=== PATIENT | female | born 1935 | race Caucasian/White ===

== ENCOUNTER 2017-02-25 10:42 | Day surgery (SDC) | payer OTHER ==
[2017-02-20 09:05] VITALS: BMI 19.9
[~2017-02-25 10:42] MED LIST: ACETAMINOPHEN 325 MG TABLET (FP) PO PRN
[2017-02-25] MEDS: FLURBIPROFEN 0.03% OPHTH SOLN 2.5 ML BOTTLE ONE ×5 (11:10→11:50)
[2017-02-25] MEDS: TROPICAMIDE 1% OPHTH SOLN 15 ML BOTTLE ONE ×5 (11:10→11:50)
[2017-02-25] MEDS: GENTAMICIN SULFATE 0.3% OPHTHALMIC (EYE DROPS) 5ML BOTTLE ONE ×2 (11:10→11:50)
[2017-02-25] MEDS: PHENYLEPHRINE 2.5% OPHTH SOLN 15 ML BOTTLE ONE ×5 (11:10→11:50)
[2017-02-25] MEDS: CYCLOPENTOLATE HCL 1% OPHTH SOLN 2 ML BOTTLE ONE ×5 (11:10→11:50)
[2017-02-25] MEDS ORDERED: MIDAZOLAM HCL 2 MG/2 ML SINGLE DOSE VIAL ONE (12:21)
[2017-02-25 13:35] VITALS: TEMP 98.4
[2017-02-25 14:12] VITALS: BP 127/77; PULSE 76
--- NOTE | 2017-02-27 10:23 | OP ---
DATE OF OPERATION: 02/25/2017 DATE OF DICTATION: 02/26/2017 TITLE OF THE PROCEDURE: Planned extracapsular cataract extraction, phacoemulsification, insertion of posterior chamber lens implant, and filtering procedure of the right eye. SURGEON: Benton Mckeon MD [employer] SURGEON: Benton Mckeon MD COMPLICATIONS: None. PREOPERATIVE DIAGNOSIS: Cataract, right eye, glaucoma, right eye. POSTOPERATIVE DIAGNOSIS: Cataract, right eye, glaucoma, right eye. ANESTHESIA: Local standby. ANESTHESIOLOGIST: Reagan Medina DO, and Sophai White MD FINDINGS AND PROCEDURES: After successful peribulbar anesthesia was given to the right eye, the patient was prepped and draped in the usual manner. I exposed the right eye, and a lid speculum was inserted as were the Tegaderm strips, and then the microscope was brought in position over the right eye. Superior fornix-based flap was then fashioned for 12 mm using Stew scissors and 0.12 forceps, and hemostasis was achieved with electrocautery. A limbal groove was then fashioned and for 3 mm with the crescent blade and dissected anterior into clear cornea. Then, a 3-mm blade was used to enter the anterior chamber. Then, under Viscoat, a 360-degree anterior capsulotomy was performed and the leaflet removed from the eye. Phacoemulsification of the entire nucleus was then done with bimanual technique without complications, and this was followed by irrigation aspiration of all cortical material with an intact posterior capsule and a red reflex present. Provisc was injected in the posterior chamber to deepen the posterior capsule, and then, the implant was inspected carefully with the microscope and found to be free of defects and free of flaws, and it was placed in the Provisc-filled cartridge, the cartridge placed in the injector, and then the implant injected into the eye such that the inferior haptic was in the inferior capsular bag and the superior haptic was in the superior capsular bag and rotated in the horizontal position with the Sinskey hook. Attention was then focused on the trabeculaer mesh work where a block measuring 1.5 x 3.5 mm was excised using Micro-Sharp blade, Vannas scissors, and 0.12 forceps, and an iridotomy performed at the 1 o'clock position. The Provisc was then aspirated out and replaced with Miochol, Miostat, and BSS, and the wound closed with one loosely tied 10-0 Ethilon interrupted suture, and with side-port irrigation, infiltration was established superiorly. A conjunctival tenon flap was reapproximated, and at this point, the implant was fixated in the capsular bag, centrally located with the round pupil intact, posterior capsule, red reflex present. Then, a filtering bleb present superiorly. Topical Betoptic S and Maxitrol ophthalmic suspensions were placed as was Bacitracin, Polymyxin B ophthalmic ointment. Then, the Tegaderm strips and lid speculum were removed from the lids. The lids were closed, and a patch and shield placed on the eye, and the patient was then discharged from the operating room to the recovery area in good condition having tolerated the procedure well. Inez [id number] MTDD
== END 2017-02-25 14:00 | disposition home or self-care (01) ==
LOC: FASU 10:42
PROVIDERS: ATTEND Ophthalmology
PROC: 08RJ3JZ Replacement of Right Lens with Synthetic Substitute, Percutaneous Approach (ICD-10-PCS; principal; 2017-02-25 12:36)
DX: H26.8 Other specified cataract (principal)